=== PATIENT | female | born 1985 | race Caucasian/White ===

== ENCOUNTER 2019-04-28 04:46 | Inpatient (IN) ==
[2019-04-21 08:50] LABS: URINE SOURCE VOIDED
[2019-04-21 08:56] LABS: BASO# 0.06 X1000 (0.0-0.2); BASO% 0.9 % (0.0-0.8); EOS# 0.21 X1000 (0.0-0.7); EOS% 3.2 % (0.0-10.0); HEMATOCRIT 41.9 % (37.0-47.0); HEMOGLOBIN 13.4 g/dL (12.0-16.0); LYMPH# 2.61 X1000 (1.2-3.4); LYMPH% 39.9 % (20.5-51.1); MCH 27.7 PG (27-31); MCV 86.7 FL (81-99); MONO# 0.42 X1000 (0.11-0.59); MONO% 6.4 % (1.7-9.3); MPV 10.6 FL (7.4-10.4); NEUT# 3.24 X1000 (1.4-6.5); NEUT% 49.6 % (42.2-75.2); PLT 227 X1000 (130-400); RBC 4.83 XMIL (4.2-5.4); RDW 12.6 % (11.5-14.5); WBC 6.54 X1000 (4.8-10.8)
[2019-04-21 08:57] LABS: BILIRUBIN URINE NEGATIVE (NEGATIVE); BLOOD URINE NEGATIVE (NEGATIVE); COLOR YELLOW; GLUCOSE URINE NEGATIVE (NEGATIVE); KETONE URINE NEGATIVE (NEGATIVE); LEUKOCYTES URINE NEGATIVE (NEGATIVE); NITRITE URINE NEGATIVE (NEGATIVE); PROTEIN URINE NEGATIVE (NEGATIVE); SP GRAVITY URINE 1.015; TURBIDITY URINE CLEAR (CLEAR); UROBILINOGEN URINE NORMAL (NORMAL)
[2019-04-21 08:58] LABS: UR EPITHELIAL CELLS <10 /HPF (<10); URINE BACTERIA NEGATIVE /HPF; URINE RBC <10 /HPF (<10); URINE WBC <10 /HPF (<10)
--- NOTE | 2019-04-28 04:28 | HISTORY AND PHYSICAL ---
HISTORY OF PRESENT ILLNESS: Mrs. Venegas is a 33-year-old, G2, P2, who was referred by Dr. Peralta secondary to abnormal uterine bleeding/heavy menstrual bleeding. The patient reports a history of abnormal uterine bleeding and heavy menstrual bleeding approximately 2 years ago at which time she was discussing a possible ablation with Dr. Peralta. The patient did not follow through with the ablation secondary to fear that ablation would not work, and she would require an additional surgery. She reports a history of control use in the past to help with bleeding, however, discontinued use of control due to worsening migraines. The patient also reports a history of hypothyroidism and admits TSH and free T4 lab values well controlled. Approximately 8 to 9 months, patient has been complaining of worsening heavy menstrual bleeding with dysmenorrhea. She also reports pain with intercourse for approximately 5 months. The patient now is requesting definitive management for heavy menstrual bleeding via a hysterectomy. PAST MEDICAL HISTORY: Hypothyroidism. MEDICATIONS: 1. Levothyroxine 150 mcg daily. 2. Calcium carbonate with vitamin D3 daily. ALLERGIES: Penicillin reaction anaphylaxis. PAST SURGICAL HISTORY: Abdominal plasty, cholecystectomy, gastric surgery, and bilateral tubal ligation. CORRECTIONS LIEUTENANT HISTORY: Menarche age 13. Last Pap smear negative for intraepithelial lesions or malignancy on 02/17/2019. Denies STD exposure. Regular heavy menstrual cycles. OBSTETRICAL HISTORY: G2, P2. Two prior full-term vaginal deliveries. FAMILY HISTORY: Mother with history of uterine cancer. Grandmother with ovarian cancer. SOCIAL HISTORY: Denies tobacco use, alcohol use, or drug use. PHYSICAL EXAMINATION: VITAL SIGNS: Temperature 97.7 degrees Fahrenheit, pulse rate 82, blood pressure 108/72, weight 158 pounds, height 5 feet 4 inches tall, and body mass index 27.1 kg/m2. GENERAL: No acute distress. Alert, awake, and oriented x3. CARDIOVASCULAR: Regular rate and rhythm. Positive S1, S2. RESPIRATORY: Clear to auscultation. No other rhonchi, rales or wheezing. ABDOMEN: Soft, nontender to palpation. Positive bowel sounds in all 4 quadrants. EXTREMITIES: Lower extremities with negative calf tenderness. Negative edema. LABORATORY: WBC 6.54, hemoglobin 13.4, hematocrit 41.9, and platelets 227,000. Creatinine 0.6. Serum test negative. Pelvic ultrasound: Uterus measures 11.4 x 7.4 x 5.7 cm. Endometrium lining with 8 mm thickness. A 2.7 x 4.2 x 3.7 cm leiomyoma noted. Both ovaries are grossly normal with the right ovary measuring 3.4 cm, and the left ovary measures 3.5 cm in greatest dimension. No solid adnexal masses or pelvic free fluid were identified. ASSESSMENT: 1. Mrs. Venegas is a 33-year-old G2, P2 with abnormal uterine bleeding/heavy menstrual bleeding complicated by dysmenorrhea. Plan patient counseled on treatment options not limited to medical management with progesterone only contraceptive methods and surgical management with endometrial ablation and hysterectomy. The patient opts for definitive management via hysterectomy. 2. Patient counseled on risk of hysterectomy, vaginal versus laparoscopic versus open and risks associated with each with route. Counseled on concern for scarring and adhesion formation secondary to multiple abdominal surgeries and recommended a total abdominal hysterectomy with bilateral salpingectomy. 3. Thyroid-stimulating hormone was checked and well controlled. Patient advised on NPO after midnight prior to procedure. 4. Patient counseled on inpatient stay 2 to 3 nights as well as pain management and recovery. 5. Patient counseled on the risks, benefits, and alternatives to a NANI with bilateral salpingectomy. Risks not limited to infection, bleeding, injury to surrounding organs including the bowel, bladder, and ureters. The patient understands risk and wishes to proceed with procedure. 6. The patient will be given prophylactic IV antibiotics prior to said procedure.
[2019-04-28] MEDS ORDERED: REGLAN ONE (06:13)
[2019-04-28] MEDS ORDERED: TRANSDERM-SCOP ONE (06:13)
[2019-04-28] MEDS ORDERED: LR 1,000 ML ONE ×2 (06:13→10:00)
[2019-04-28] MEDS ORDERED: PEPCID ONE (06:13)
[2019-04-28] MEDS ORDERED: GENTAMICIN 80 MG/NS 80 MG/50 ML IVPB ONE (06:13)
[2019-04-28] MEDS ORDERED: CLINDAMYCIN 900 MG/D5W 900 MG/50 ML IVPB ONE (06:16)
[2019-04-28] MEDS ORDERED: DIPRIVAN 1% ONE (06:34)
[2019-04-28] MEDS ORDERED: XYLOCAINE-MPF 2% ONE ×2 (06:36→08:50)
[2019-04-28] MEDS ORDERED: SODIUM CHLORIDE 0.9% 10 ML ONE (06:36)
[2019-04-28] MEDS ORDERED: NORCURON ONE (06:36)
[2019-04-28] MEDS ORDERED: VERSED ONE (06:37)
[2019-04-28] MEDS ORDERED: FENTANYL ONE (06:40)
--- NOTE | 2019-04-28 06:47 | H&P REVIEW ---
H&P Update H&P Review: H&P was reviewed and patient was examined, No change has occurred in the patient's condition
[2019-04-28] MEDS ORDERED: OFIRMEV 1000 MG/ISOTONIC SOLN 1,000 MG/100 ML BOTTLE ONE (07:03)
[2019-04-28] MEDS ORDERED: TORADOL ONE (07:03)
[2019-04-28] MEDS ORDERED: DECADRON ONE (07:03)
[2019-04-28] MEDS ORDERED: ZOFRAN ONE (07:03)
[2019-04-28] MEDS ORDERED: EXPAREL 1.3% ONE (07:12)
[2019-04-28] MEDS ORDERED: MARCAINE 0.25% PF ONE (07:12)
[2019-04-28] MEDS ORDERED: PHENERGAN ONE (07:36)
[2019-04-28 08:23] LABS: URINE SOURCE CATH
[2019-04-28 08:39] LABS: BILIRUBIN URINE NEGATIVE (NEGATIVE); BLOOD URINE NEGATIVE (NEGATIVE); COLOR YELLOW; GLUCOSE URINE NEGATIVE (NEGATIVE); KETONE URINE NEGATIVE (NEGATIVE); LEUKOCYTES URINE NEGATIVE (NEGATIVE); NITRITE URINE NEGATIVE (NEGATIVE); PH URINE 5.5; PROTEIN URINE TRACE mg/dL (NEGATIVE); TURBIDITY URINE CLEAR (CLEAR); UROBILINOGEN URINE NORMAL (NORMAL)
[2019-04-28 08:41] LABS: UR EPITHELIAL CELLS <10 /HPF (<10); URINE BACTERIA NEGATIVE /HPF; URINE RBC TNTC /HPF (<10); URINE WBC <10 /HPF (<10)
[2019-04-28] MEDS ORDERED: QUELICIN (DOSE) ONE (08:50)
[2019-04-28] MEDS ORDERED: ROBINUL ONE ×2 (08:50→09:10)
[2019-04-28] MEDS ORDERED: NEOSTIGMINE ONE (09:10)
[2019-04-28] MEDS ORDERED: FLEET ENEMA PR PRN (09:44)
[2019-04-28] MEDS ORDERED: NORCO-10 PO PRN (09:44)
[2019-04-28] MEDS ORDERED: PHENERGAN IM PRN (09:44)
[2019-04-28] MEDS ORDERED: DULCOLAX PR PRN (09:44)
[2019-04-28] MEDS ORDERED: DEMEROL IM PRN (09:44)
[2019-04-28] MEDS ORDERED: MOTRIN PO PRN (09:44)
[2019-04-28] MEDS ORDERED: ZOFRAN IV PRN ×2 (09:44→10:30)
[2019-04-28] MEDS: DILAUDID ONE ×2 (10:01→10:13)
[2019-04-28] MEDS ORDERED: DILAUDID PCA VIAL ONE (10:04)
[2019-04-28] MEDS ORDERED: PHENERGAN IV PRN (10:30)
[2019-04-28] MEDS ORDERED: BENADRYL IV PRN (10:30)
[2019-04-28] MEDS ORDERED: LR 1,000 ML IV SCH (10:30)
[2019-04-28] MEDS ORDERED: SODIUM CHLORIDE 0.9% INJ PRN (10:30)
[2019-04-28] MEDS ORDERED: DILAUDID PCA VIAL IV PRN (10:30)
[2019-04-28] MEDS ORDERED: NARCAN IV PRN (10:30)
[2019-04-28] MEDS: PYRIDIUM PO SCH ×3 (11:16→16:29)
[2019-04-28] MEDS: OFIRMEV 1000 MG/ISOTONIC SOLN 1,000 MG/100 ML BOTTLE IV SCH ×3 (13:09→20:56)
[2019-04-28] MEDS: MYLICON PO SCH ×4 (13:16→20:55)
[2019-04-28] MEDS: TORADOL IV SCH ×2 (16:29→20:56)
[2019-04-28] MEDS ORDERED: SYNTHROID PO SCH (20:00)
[2019-04-28] MEDS ORDERED: CALTRATE 600 PO SCH (21:00)
[2019-04-28] MEDS: PERIDEX MT SCH (21:13)
[2019-04-28] MEDS: CALTRATE 600 PO SCH (21:14)
[2019-04-28] MEDS: AMBIEN PO PRN (22:19)
[2019-04-28] MEDS: COLACE PO SCH (22:19)
[2019-04-29] MEDS: OFIRMEV 1000 MG/ISOTONIC SOLN 1,000 MG/100 ML BOTTLE IV SCH ×3 (04:20→15:30)
[2019-04-29] MEDS: TORADOL IV SCH ×2 (04:21→10:27)
[2019-04-29] MEDS: SYNTHROID PO SCH (06:05)
[2019-04-29 07:08] LABS: BASO# 0.08 X1000 (0.0-0.2); BASO% 0.8 % (0.0-0.8); EOS# 0.14 X1000 (0.0-0.7); EOS% 1.3 % (0.0-10.0); HEMATOCRIT 33.9 % (37.0-47.0); HEMOGLOBIN 10.7 g/dL (12.0-16.0); IMM GRAN# 0.02 X1000 (0.0-0.04); IMM GRAN% 0.2 % (0.0-0.5); LYMPH# 3.59 X1000 (1.2-3.4); LYMPH% 34.2 % (20.5-51.1); MCH 27.6 PG (27-31); MCHC 31.6 g/dL (33-37); MCV 87.4 FL (81-99); MONO# 0.87 X1000 (0.11-0.59); MONO% 8.3 % (1.7-9.3); MPV 10.6 FL (7.4-10.4); NEUT# 5.81 X1000 (1.4-6.5); NEUT% 55.2 % (42.2-75.2); PLT 191 X1000 (130-400); RBC 3.88 XMIL (4.2-5.4); RDW 12.3 % (11.5-14.5); WBC 10.51 X1000 (4.8-10.8)
--- NOTE | 2019-04-29 08:57 | PROVIDER PROGRESS NOTE ---
- Subjective Pt seen and examined. Currently without complaints. Ambulating without difficulty. Ornelas cath insitu and appropriate urine output. Reports mild bladder spasms from ornelas cath, however Pyridium meds decreasing pain. Tolerated clear liquid diet yesterday, denies nausea/emesis and admits to flatus. Pain well controlled on IV pain meds. 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 Physical Exam Objective Vital Signs - 8 hr 04/29/19 04:01 04/29/19 07:47 Temperature 98.5 F 98.2 F Pulse Rate 66 79 Respiratory Rate 18 16 Blood Pressure 87/52 90/54 O2 Sat by Pulse Oximetry 97 98 - Constitutional General Appearance: appears well, alert, no apparent distress - RESPIRATORY Respiratory: lungs clear, normal breath sounds - CARDIOVASCULAR Cardiovascular: regular rate, rhythm - GASTROINTESTINAL (ABDOMEN) Abdominal Exam: normal bowel sounds, non tender, soft - GENITOURINARY Female Genitalia/Pelvic Exam: external exam normal - MUSCULOSKELETAL Extremity: non-tender, no pedal edema - SKIN Integumentary: normal color (Incision: C/D/I), warm/dry - PSYCHIATRIC Psych/Mental Status: normal mood/affect, oriented x 3 Active Medications Generic Name Dose Route Start Last Admin Trade Name Freq PRN Reason Stop Dose Admin Hydrocodone Bitart/Acetaminophen 1 each 04/28/19 09:44 [place]-10 PO Q4H PRN PRN Pain (7-10 on Pain Scale) Bisacodyl 10 mg 04/28/19 09:44 Dulcolax ID Q6H PRN PRN Gas Calcium Carbonate/Glycine 1,200 mg 04/28/19 21:00 04/28/19 21:14 Caltrate 600 PO 1,200 mg QHS MICHAEL Administration Chlorhexidine Gluconate 15 ml 04/28/19 21:00 04/28/19 21:13 Peridex MT 15 ml BID MICHAEL Administration Docusate Sodium 100 mg 04/28/19 21:00 04/28/19 22:19 Colace PO 100 mg BID MICHAEL Administration Hydromorphone HCl 0 mg 04/28/19 10:30 Dilaudid Director Hardware Vial IV PRN PRN Pain Acetaminophen 1,000 mg in 100 mls @ 400 mls/hr 04/28/19 09:45 04/29/19 04:20 Ofirmev 1000 Mg/Isotonic Soln IV 400 mls/hr Q6H MICHAEL Administration Ibuprofen 800 mg 04/29/19 15:30 Motrin PO Q8H PRN MICHAEL Ketorolac Tromethamine 30 mg 04/28/19 15:47 04/29/19 04:21 Toradol IV 04/29/19 09:48 30 mg Q6H MICHAEL Administration Levothyroxine Sodium 125 microgm 04/29/19 07:00 04/29/19 06:05 Synthroid PO 125 microgm ACB MICHAEL Administration Meperidine HCl 50 mg 04/28/19 09:44 Demerol IM Q2-4H PRN PRN Pain (7-10 on Pain Scale) Ondansetron HCl 4 mg 04/28/19 09:44 Zofran IV Q8H PRN PRN Nausea Phenazopyridine HCl 200 mg 04/28/19 13:00 04/28/19 16:29 Pyridium PO 04/30/19 09:01 200 mg TID MICHAEL Administration Promethazine HCl 25 mg 04/28/19 09:44 Phenergan IM Q2-4H PRN PRN Pain (7-10 on Pain Scale) Simethicone 80 mg 04/28/19 13:00 04/28/19 20:55 Mylicon PO 80 mg PC + HS MICHAEL Administration Sodium Biphosphate/Sodium Phosphate 133 ml 04/28/19 09:44 Fleet Enema ID PRN PRN Gas Zolpidem Tartrate 5 mg 04/28/19 09:44 04/28/19 22:19 Ambien PO 5 mg HS PRN PRN Administration Sleep Laboratory Results - last 24 hr 04/29/19 06:54 WBC 10.51 RBC 3.88 L Hgb 10.7 L Hct 33.9 L MCV 87.4 MCH 27.6 MCHC 31.6 L RDW Std Deviation 12.3 Plt Count 191 MPV 10.6 H Immature Gran % (Auto) 0.2 Neut % (Auto) 55.2 Lymph % (Auto) 34.2 [place] % (Auto) 8.3 Eos % (Auto) 1.3 Baso % (Auto) 0.8 Immature Gran # (Auto) 0.02 Neut # (Auto) 5.81 Lymph # (Auto) 3.59 H [place] # (Auto) 0.87 H Eos # (Auto) 0.14 Baso # (Auto) 0.08 - Assessment & Plan (1) S/P total abdominal hysterectomy Status: Acute Plan: 33yo POD#1 s/p Total abdominal hysterectomy with bilateral salpingectomy and left oophorectomy secondary to AUB/HMB and left ovarian cyst -Pain well controlled, 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
[2019-04-29] MEDS: PYRIDIUM PO SCH ×3 (10:26→17:43)
[2019-04-29] MEDS: PERIDEX MT SCH ×2 (10:26→21:33)
[2019-04-29] MEDS: MYLICON PO SCH ×4 (10:26→21:33)
[2019-04-29] MEDS: COLACE PO SCH ×2 (10:27→21:33)
[2019-04-29] MEDS ORDERED: MOTRIN PO PRN (15:30)
[2019-04-29] MEDS: NORCO-10 PO PRN (18:08)
[2019-04-29] MEDS: CALTRATE 600 PO SCH (21:34)
[2019-04-29] MEDS: AMBIEN PO PRN (21:36)
[2019-04-30] MEDS: MOTRIN PO SCH ×2 (00:16→08:01)
[2019-04-30] MEDS: NORCO-10 PO PRN ×3 (03:43→12:22)
[2019-04-30] MEDS: SYNTHROID PO SCH (06:21)
[2019-04-30] MEDS: PYRIDIUM PO SCH (08:00)
[2019-04-30] MEDS: COLACE PO SCH (08:01)
[2019-04-30] MEDS: PERIDEX MT SCH (08:02)
[2019-04-30] MEDS: MYLICON PO SCH ×2 (08:02→12:23)
[2019-04-30] MEDS ORDERED: CHLORASEPTIC SPRAY MT PRN (08:37)
[2019-04-30 11:27] VITALS: BP 102/71
--- NOTE | 2019-04-30 17:21 | PROVIDER PROGRESS NOTE ---
- Subjective Pt is POD #2 s/p NANI BS with left oophorectomy. Reports increased pain/discomfort s/p discontinuation of IV pain meds and sore throat. Pain was well controlled with IV toradol and IV acetaminophen. Reports receiving PO narcotics once over night. However pt still reports desire for discharge home today. Also requiring valsalva maneuver to initiate urination. Denies dysuria and increased urinary frequency. Ambulating without difficulty. Tolerating regular diet, denies nausea/vomiting. Physical Exam Objective Vital Signs - 8 hr 04/30/19 09:19 04/30/19 11:27 Temperature 98.2 F Pulse Rate 76 Respiratory Rate 16 Blood Pressure 102/71 O2 Sat by Pulse Oximetry 96 99 - Constitutional General Appearance: appears well, alert, no apparent distress - RESPIRATORY Respiratory: lungs clear, normal breath sounds - CARDIOVASCULAR Cardiovascular: regular rate, rhythm - GASTROINTESTINAL (ABDOMEN) Abdominal Exam: non tender, soft - MUSCULOSKELETAL Extremity: no pedal edema, no calf tenderness - SKIN Integumentary: normal color, warm/dry (Incision: c/d/i) Laboratory Tests 04/21/19 04/21/19 04/21/19 08:45 08:45 08:45 WBC RBC Hgb Hct MCV MCH MCHC RDW Std Deviation Plt Count MPV Immature Gran % (Auto) Neut % (Auto) Lymph % (Auto) [place] % (Auto) Eos % (Auto) Baso % (Auto) Immature Gran # (Auto) Neut # (Auto) Lymph # (Auto) [place] # (Auto) Eos # (Auto) Baso # (Auto) Creatinine 0.6 Serum , Qual Urine Source VOIDED Urine Color YELLOW Urine Turbidity CLEAR Urine pH 6.0 Ur Specific [place] 1.015 Urine Protein NEGATIVE Ur Glucose (Stick) NEGATIVE Ur Ketones (Stick) NEGATIVE Urine Blood NEGATIVE Urine Nitrite NEGATIVE Urine Bilirubin NEGATIVE Urobilinogen Dipstick NORMAL Urine Leukocytes NEGATIVE Urine WBC (Auto) <10 Urine RBC (Auto) <10 U Epithel Cells (Auto) <10 Urine Bacteria (Auto) NEGATIVE Blood Type A POSITIVE Antibody Screen 04/21/19 04/21/19 04/28/19 08:45 08:45 05:44 WBC 6.54 RBC 4.83 Hgb 13.4 Hct 41.9 MCV 86.7 MCH 27.7 MCHC 32.0 L RDW Std Deviation 12.6 Plt Count 227 MPV 10.6 H Immature Gran % (Auto) 0.0 Neut % (Auto) 49.6 Lymph % (Auto) 39.9 [place] % (Auto) 6.4 Eos % (Auto) 3.2 Baso % (Auto) 0.9 H Immature Gran # (Auto) 0.00 Neut # (Auto) 3.24 Lymph # (Auto) 2.61 [place] # (Auto) 0.42 Eos # (Auto) 0.21 Baso # (Auto) 0.06 Creatinine Serum , Qual NEGATIVE Urine Source Urine Color Urine Turbidity Urine pH Ur Specific [place] Urine Protein Ur Glucose (Stick) Ur Ketones (Stick) Urine Blood Urine Nitrite Urine Bilirubin Urobilinogen Dipstick Urine Leukocytes Urine WBC (Auto) Urine RBC (Auto) U Epithel Cells (Auto) Urine Bacteria (Auto) Blood Type A POSITIVE Antibody Screen NEGATIVE 04/28/19 04/28/19 04/29/19 05:49 07:45 06:54 WBC 10.51 RBC 3.88 L Hgb 10.7 L Hct 33.9 L MCV 87.4 MCH 27.6 MCHC 31.6 L RDW Std Deviation 12.3 Plt Count 191 MPV 10.6 H Immature Gran % (Auto) 0.2 Neut % (Auto) 55.2 Lymph % (Auto) 34.2 [place] % (Auto) 8.3 Eos % (Auto) 1.3 Baso % (Auto) 0.8 Immature Gran # (Auto) 0.02 Neut # (Auto) 5.81 Lymph # (Auto) 3.59 H [place] # (Auto) 0.87 H Eos # (Auto) 0.14 Baso # (Auto) 0.08 Creatinine Serum , Qual NEGATIVE Urine Source CATH Urine Color YELLOW Urine Turbidity CLEAR Urine pH 5.5 Ur Specific [place] 1.030 Urine Protein TRACE A Ur Glucose (Stick) NEGATIVE Ur Ketones (Stick) NEGATIVE Urine Blood NEGATIVE Urine Nitrite NEGATIVE Urine Bilirubin NEGATIVE Urobilinogen Dipstick NORMAL Urine Leukocytes NEGATIVE Urine WBC (Auto) <10 Urine RBC (Auto) TNTC A U Epithel Cells (Auto) <10 Urine Bacteria (Auto) NEGATIVE Blood Type Antibody Screen - Assessment & Plan (1) S/P total abdominal hysterectomy Status: Acute Plan: 33yo POD#2 s/p Total abdominal hysterectomy with bilateral salpingectomy and left oophorectomy secondary to AUB/HMB and left ovarian cyst -Control pain with Ibuprofen 800 mg q 8 scheduled and [place] 10 mg q 4 hrs -con't regular diet -OOB to ambulation -Chloraseptic spray for throat pain -continue with routine post-op care, possible d/c home today pending pain mgt with PO pain meds
--- NOTE | 2019-05-01 23:31 | OPERATIVE NOTE ---
PROCEDURE DATE: 04/28/2019 SURGEON: Dion Valentine DO DIRECT SERVICE PROVIDER: Jesion Hartley III, MD PREOPERATIVE DIAGNOSES: 1. Abnormal uterine bleeding/heavy menstrual bleeding. 2. Uterine fibroids. POSTOPERATIVE DIAGNOSES: 1. Abnormal uterine bleeding/heavy menstrual bleeding. 2. Uterine fibroids. 3. Left ovarian cyst. PROCEDURE PERFORMED: Total abdominal hysterectomy with bilateral salpingectomy and left ovarian oophorectomy. ANESTHESIA: General endotracheal anesthesia with abdominal TAP block. ESTIMATED BLOOD LOSS: 175 mL. URINE OUTPUT: 125 mL clear urine. FINDINGS: Normal 12 cm size uterus with a left ovarian cyst. SPECIMENS: Removed uterus, cervix, bilateral tubes and left ovary. COMPLICATIONS: Bleeding noted from left adnexa, requiring removal of left ovary. DISPOSITION: Stable. DESCRIPTION OF PROCEDURE: The patient was taken to the operating room where a time-out was performed to confirm correct patient and correct procedure. The patient was given preoperative prophylactic intravenous antibiotics. General anesthesia was established. The patient was then positioned on the operating table in the dorsal lithotomy position. The patient was then prepped and draped in the usual sterile fashion. An indwelling Nick catheter was inserted. A Pfannenstiel incision was made in the skin and sharp dissection was carried out over subsequent layers of tissue including the fascia using the scalpel and the Bovie electrocautery. Hemostasis was maintained using the Bovie electrocautery. The fascial incision was extended bilaterally using the curved Chowdhury scissors. The inferior edge of the fascial incision was grasped with Latosha clamps, tented up, and the underlying rectus muscles were dissected off using the Bovie electrocautery. Attention was then turned to the superior edge which was grasped with Latosha clamps, tented up and the underlying rectus muscles were dissected off again using the Bovie electrocautery. The rectus muscles were then divided at midline and the peritoneum was identified and entered bluntly at its superior margin, taking care to avoid the bladder. The peritoneal incision was extended superiorly and inferiorly using Metzenbaum scissors, with good visualization of the bladder. The O'Kennedy-O'Dupont self-retaining retractor was then inserted into the abdominal cavity and opened for pelvic floor exposure. The patient was placed in Trendelenburg position and the intestines were placed into the upper abdomen, held in place using packing. A Leahey clamp was used to grasp the uterine fundus and elevate the uterus out of the pelvic cavity into the operating field. Bilateral fallopian tubes were then identified and removed using the LigaSure device. Attention was then turned to the round ligaments which were elevated, coagulated and incised using the LigaSure device. The anterior leaf of the broad ligament was then identified. An incision was extended into the anterior leaf to the point of the reflection of the bladder peritoneum on the uterus. The pelvic course of the ureters were identified bilaterally and care was taken to avoid disruption of the ureters. The round ligament was incised on the left side in a similar fashion, and the anterior leaf of the broad ligament was incised and extended to the point of reflection of the bladder peritoneum. The avascular areas of the broad ligament were located, incised, and the ovarian ligaments were clamped as close as possible to the uterine corpus using the LigaSure device. The ovarian ligament was coagulated and cut with the LigaSure device, and good hemostasis was obtained on the right side containing the ovarian ligaments. In a similar fashion, the avascular areas on the left broad ligament were located and incised using the Bovie electrocautery. The LigaSure device was used to clamp the left ovarian ligament and incise the ligament after coagulation. A small left ovarian cyst was noted on the ovary, but appeared as a normal cystic mass; however, after clamping the left ovarian ligament, bleeding was noted along the left adnexal area. Decision was made to remove the left ovary to help obtain hemostasis. The LigaSure device was clamped around the left infundibulopelvic ligament. The left ureter was identified and movement was noted prior to coagulation and cutting of the left infundibulopelvic ligament. The midline reflection of the bladder peritoneum onto the uterus was then freed by extending the incisions of the anterior leafs of the broad ligaments. The bladder was from the lower uterine segment and the upper cervix by careful sharp and blunt dissection. Mobilization of the bladder away from the cervix and upper anterior vaginal wall was performed. The posterior leafs of the broad ligaments were skeletonized on either side. This allowed for exposure of the uterine vessels, which were again skeletonized with Metzenbaum scissors. The bladder base was now mobilized and displaced off the cervix. The uterine corpus was retracted to expose the uterine vessels. Using the LigaSure device, this LigaSure was clamped along the uterine vessels bilaterally, just above the internal os. The LigaSure device was used for coagulation. After adequate coagulation, the LigaSure device was removed and a curved Андрей clamp was placed on the uterine vessels and they were bilaterally clamped at the level of the internal cervical os, at right angles to the lower uterine segment. The vessels were cut and freed from the uterus by extending the incisions around the tip of the clamp. Absorbable sutures of 0 Vicryl were placed in the angles of the incision and at the tips of the clamps, taking care to ensure that all vessels were secured by ligature. The bladder was further mobilized from the cervix at midline and laterally using sharp and blunt dissection. The free margin of the cervix and the anterior vaginal fornix were then identified. The cardinal ligaments were clamped with straight Андрей and cut using a scalpel. The pedicles were suture-ligated using 0 Vicryl sutures. This was repeated until the level of the lateral vaginal fornix was reached. Two curved Андрей were then placed across the lateral vaginal fornix at the level of the external cervical os. Gail scissors were used to amputate the cervix from the vagina. The lateral vaginal fornices were then suture- ligated and secured to the cardinal and uterosacral ligaments. The vaginal cuff was closed using 0 Vicryl in a [id number] suture. The abdominal cavity was then irrigated with normal saline solution, and good hemostasis was confirmed. Surgicel was applied to the bladder flap to reinforce hemostasis. The retractor and laparotomy pads were removed, and hemostasis again was confirmed. The fascia was reapproximated using 0 Vicryl suture in a running nonlocking fashion. The subcutaneous fat was reapproximated using 2-0 plain in a running nonlocking fashion. The skin was reapproximated using 4-0 Monocryl in a running subcuticular stitch on a Uri needle. All needle, sponge and instrument counts were noted to be correct x2 at the completion of the procedure. The patient tolerated the procedure well and was transferred to the recovery room in stable condition.
--- NOTE | 2019-05-16 23:48 | DISCHARGE SUMMARY ---
ADMISSION DATE: 04/28/2019 DISCHARGE DATE: 04/30/2019 PRIMARY DIAGNOSIS: Abnormal uterine bleeding, heavy menstrual bleeding. DISCHARGE DIAGNOSES: 1. Abnormal uterine bleeding. 2. Adenomyosis, ovarian cysts. PROCEDURE PERFORMED: Total abdominal hysterectomy with bilateral salpingectomy and left ovarian oophorectomy. REASON FOR HOSPITALIZATION: Mrs. Venegas is a 33-year-old, G2, P2, who was referred by Dr. Valentine secondary to abnormal uterine bleeding/heavy menstrual bleeding. The patient reported a history of abnormal bleeding for approximately 2 years and declined resolution with uterine ablation. The patient reported a history of control use in the past to help with bleeding. However, discontinued secondary to worsening migraines with control use. The patient opted for definitive management for abnormal uterine bleeding, resulting in a total abdominal hysterectomy secondary to uterine size. The patient tolerated procedure well. 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 pain medications. The patient reported good ambulation and flatus on postoperative day 1. Tolerated a regular diet on postoperative day 2. The patient requested discharge home on postoperative day 2 due to good pain management. INSTRUCTIONS: The patient was told to have pelvic rest for approximately 6 to 8 weeks and not to insert anything into the vagina and not to have intercourse. She was also told to avoid being underwater for 6 weeks. Showering is fine but no submission in the tub or pool. She was told to call with any signs and symptoms of infection with increased temperature, malodorous discharge, pus draining from her incision site or significant bleeding from the incision. She was given instructions or precautions for excessive vaginal bleeding and she was advised to follow up in 1 week post procedure. DISCHARGE MEDICATIONS: Please see medication reconciliation discharge form.
== END 2019-04-30 15:28 | disposition home or self-care (01) | DRG 743 ==
LOC: SURHOLD 04:46 → 4N 08:06
PROVIDERS: ADMIT Obstetrics & Gynecology; ATTEND Obstetrics & Gynecology